=== PATIENT | female | born 1975 | race African-American/Black ===

== ENCOUNTER 2017-01-11 16:35 | Emergency (ER) | payer MEDICAID ==
[~2017-01-11] VITALS: Ht 170.2 cm; Wt 118.0 kg
[~2017-01-11 16:35] MED LIST: ATOR20TA15 PO; BOTO200I INJ; BUTO10SO NASAL; DILA100C PO; LEVO.1 PO; TRAM50TA PO
[2017-01-11 16:36] VITALS: BP 141/88; PULSE 78; RESP 15; TEMP 98.2; O2SAT 99
--- NOTE | 2017-01-11 17:03 | PD ---
HPI Chief Complaint: Headache Time Seen by Provider: 16:51 Travel History International Travel<30 days: No Contact w/Intl Traveler<30days: No Traveled to known affect area: No History of Present Illness HPI This is a 41 year old female with a history of migraines who presents to the emergency department with 3 days of a headache described as throbbing, aching, constant, starting at the front of her head, 10/10. Pt. has been vomiting and saw an aura of flashing lights. Pt. has had similar symptoms before and she usually takes nasal stadol for her migraines but she has run out of it. Her headache is similar to her typical headaches. PFSH Past Medical History Hx Anticoagulant Therapy: No Anemia: Yes Arthritis: Yes (BILAT KNEES) Asthma: No Blood Disorders: No Anxiety: Yes Depression: Yes Heart Rhythm Problems: No Cancer: No Cardiac Catheterization: No Cardiovascular Problems: No High Cholesterol: No Chemotherapy: No Chest Pain: No Congestive Heart Failure: No COPD: No Cerebrovascular Accident: No Diabetes: No Diminished Hearing: No Endocrine: Yes Gastrointestinal Disorders: Yes Genitourinary: No Headaches: Yes Hepatitis: No Hiatal Hernia: No Hypertension: No Immune Disorder: No Implanted Vascular Access Dvce: No Insomnia: Yes Musculoskeletal: No Neurologic: Yes (SEIZURES, MIGRAINS, MENINGITIS) Psychiatric: No Reproductive: No Respiratory: No Immunizations Current: Yes Migraines: Yes Myocardial Infarction: No Pneumonia: Yes Radiation Therapy: No Seizures: Yes (PETITE MAL LAST SEIZURE ) Sleep Apnea: No Thyroid Disease: Yes (HYPO) PNEUMOCCOCAL Vaccine (Year): 1 ?: Not Menopausal: Yes : 2 Para: 2 Miscarriage: 0 : 0 Tubal Ligation: Yes Past Surgical History Abdominal Surgery: No Body Medical Devices: MARKER LEFT BREAST Cardiac Surgery: No Coronary Artery Bypass Graft: No Ear Surgery: No Endocrine Surgery: Yes (L THYROIDECTOMY) Eye Surgery: No Genitourinary Surgery: No Gynecologic Surgery: Yes (UTERINE ABLATION 2010, ) Hysterectomy: No Joint Replacement: No Neurologic Surgery: Yes (LUMBAR PUNCTURE 02/03/10 to r/o meningitis) Oral Surgery: No Pacemaker: No Thoracic Surgery: No Tympanostomy Tube: Yes Other Surgery: Yes (endometrial ablation) Social History Alcohol Use: No Tobacco Use: No Substance Use: No Allergies-Medications (Allergen,Severity, Reaction): Coded Allergies: Augmentin (Verified Allergy, Severe, RASH, 07/28/16) Depakote (Verified Allergy, Severe, Itching, ONLY IV FORMULATION, 07/28/16 ) PT STATES NOT ALLERGIC Toradol (Verified Allergy, Severe, ITCH, N&V, 07/28/16) Zofran (Verified Allergy, Severe, N/V, ITCHING, 07/28/16) Buprenorphine (Verified Allergy, Intermediate, itchy, vomiting, 07/28/16) Cerebyx (Verified Allergy, Intermediate, ITCHING, 07/28/16) Fioricet (Verified Allergy, Intermediate, itchy, vomiting, 07/28/16) Lorazepam (Verified Allergy, Intermediate, Itching, 07/28/16) Compazine (Verified Allergy, Unknown, 07/28/16) ITCHING Reported Meds & Prescriptions Reported Meds & Active Scripts Active Tramadol (Tramadol HCl) 50 Mg Tab 50 Mg PO Q6H PRN Dilantin (Phenytoin Extended) 100 Mg Cap 100 Mg PO 5 TIMES A DAY 30 Days Reported Botox Inj (Onabotulinumtoxina) 200 Unit Inj Unknown Dose INJ MONTHLY Synthroid (Levothyroxine Sodium) 100 Mcg Tab 100 Mcg PO DAILY Butorphanol Nasal [place] (Butorphanol Tartrate) 10 Mg/Ml Soln 1 [place] NASAL Q4HR PRN in one nostril (1 mg). If pain not reliefed in 60-90 minutes, a 1 mg repeat dose may be given. May repeat this in 3-4 hrs if needed. Dilantin (Phenytoin Extended) 100 Mg Cap 100 Mg PO 5 TIMES A DAY Atorvastatin (Atorvastatin Calcium) 20 Mg Tab 20 Mg PO HS Review of Systems Except as stated in HPI: all other systems reviewed are Neg Physical Exam Narrative GENERAL:Well appearing, no acute distress SKIN: Focused skin assessment warm and dry. HEAD: Atraumatic. Normocephalic. EYES: Pupils equal and round. No injection or drainage. ENT: Moist mucous membranes NECK: Trachea midline. CARDIOVASCULAR: Regular rate and rhythm. No murmur appreciated. RESPIRATORY: Clear to auscultation. Breath sounds equal bilaterally. GASTROINTESTINAL: Abdomen soft, non-tender, nondistended. MUSCULOSKELETAL: No obvious deformities. NEUROLOGICAL: Awake and alert. No obvious cranial nerve deficits. No dysarthria or aphasia. No upper or lower extremity drift. No upper extremity ataxia. PSYCHIATRIC: Appropriate mood and affect; insight and judgment normal. Data Data Last Documented VS Vital Signs Date Time Temp Pulse Resp B/P Pulse Ox O2 Delivery O2 Flow Rate FiO2 01/11/17 16:36 98.2 78 15 141/88 99 MDM Medical Decision Making Medical Screen Exam Complete: Yes Emergency Medical Condition: Yes Interpretation(s) Afebrile, no tachycardia, hypertensive Differential Diagnosis Migraine headaches, opiate associated headache, drug-seeking behavior, subarachnoid hemorrhage, meningitis Narrative Course This is a 41-year-old female who presents the emergency department with 3 days of a migraine headache. She says her headache is similar to prior headaches. She usually uses butorphanol spray for her headaches. He has a normal neurologic exam. I don't think this reflects an acute neurologic emergency. Patient has stated allergies to Toradol, Zofran, Compazine, Fioricet and lorazepam. She's been to the emergency department multiple times in the past for pain related complaints. She received 39 controlled substance prescriptions this year from 7 different providers. In the month of September alone and she filled butorphanol spray 7 times. She reports that some of her bottles broke. I have discussed with this patient in the past I don't think opiates are a good choice of migraine control for her and I suspect that withdrawal symptoms are contributing to her worsening headaches. I offered this patient IV hydration and magnesium for her headache but she declined. Unfortunately we are very limited given her stated allergies. Patient will be discharged home to follow- up with her neurologist. Diagnosis Primary Impression: Opiates and related narcotics causing adverse effect Qualified Code: T40.605D - Opiates and related narcotics causing adverse effect, subsequent encounter Patient Instructions: General Instructions Additional Instructions: If you develop severe worsening headache, persistent vomiting, numbness, weakness, difficulty walking or difficulty talking return to the emergency department immediately. Sometimes in the emergency department we did not identify the cause of headaches. If you continued to have headaches it is very important that you followup with your primary care physician as you may need further testing with an MRI. Med/Other Pt SpecificInfo: No Change to Meds Disposition: 01 DISCHARGE HOME Condition: Stable Shae Schroeder MD January 11, 2017 17:03
== END 2017-01-11 17:54 | disposition home or self-care (01) ==
LOC: NEPD 16:35
DX: I10 Essential (primary) hypertension (principal); T40.605D Adverse effect of unspecified narcotics, subsequent encounter
CPT/HCPCS: 99283